=== PATIENT | male | born 1970 | race Two or more races ===

== ENCOUNTER 2018-12-03 13:23 | Emergency (ER) | payer MEDICARE, OTHER ==
[~2018-12-03] VITALS: Ht 162.6 cm; Wt 59.0 kg
[2018-12-03] MEDS ORDERED: METFORMIN HYDRO25 GM MISC (13:30)
[2018-12-03] MEDS ORDERED: ZYPREXA2.5 MG PO (13:30)
[2018-12-03] MEDS ORDERED: COZAAR100 MG PO (17:04)
[2018-12-03] MEDS ORDERED: OLANZAPINE5 MG PO (17:05)
[2018-12-03] MEDS ORDERED: METFORMIN HCL1000 M1 PO (17:05)
[2018-12-03] MEDS ORDERED: BENZTROPINE ME0.5 MG PO (17:06)
[2018-12-03] MEDS ORDERED: CETIRIZINE HCL10 MG PO (17:06)
[2018-12-03] MEDS ORDERED: CHLORTHALIDONE25 MG PO (17:15)
[2018-12-03] MEDS ORDERED: PROZAC20 MG PO (17:16)
[2018-12-03] MEDS ORDERED: NORVASC10 MG PO (17:17)
[2018-12-03] MEDS ORDERED: LIPITOR20 MG (17:17)
[2018-12-03] MEDS ORDERED: COREG3.125 MG PO (17:18)
[2018-12-03] MEDS ORDERED: ATIVAN1 MG PO (17:18)
[2018-12-03] MEDS ORDERED: FLUPHENAZINE HC10 MG PO (17:19)
--- OUTSIDE RECORDS SUMMARY | 2018-12-04 11:16 | XMS ---
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 Guidelines CARE PROVIDERS [facility] Psychiatry \T\ Neurology: Psychiatry Current PHONE: Unknown JERRY CUNNINGHAM Primary Care Current PHONE: Unknown Guidelines Source: [facility] Wellness Guidelines Date: 10/23/2017 Care Recommendation: Savannah request staff to be nice and respectful if he is ever admitted as he reports having a history of hospitalizations he felt he wasn\T\#39;t treated well.\T\nbsp; In addition, Savannah requests that if admitted that he get his antipsychotic medications.\T\nbsp;\T\nbsp; No history of violence to self or others. No current PRN\T\#39;s for anxiety or agitation and willing to take medications if needed. Allergies:\T\nbsp; Lisinopril Care Coordination: Please contact: Queta Parker RN [facility] [place] PCP:\T\nbsp; Lucy Schrader PA-C E.DCarol VISIT COUNT (12 MO.) 1 [facility] TOTAL 1 NOTE: Visits indicate total known visits. ED/UCC VISIT TRACKING (12 MO.) 12/03/2018 13:23 SERGEY Krishnan [place] TYPE: Emergency COMPLAINT: - MEDICAL CLEARANCE INPATIENT VISIT TRACKING (12 MO.) No inpatient visits to display in this time frame [email or web address]
== END 2018-12-04 11:15 ==
LOC: ED 13:23
DX: Z00.8 Encounter for other general examination (principal); F17.200 Nicotine dependence, unspecified, uncomplicated; Z79.899 Other long term (current) drug therapy
CPT/HCPCS: 80053; 80176; 81001; 84443; 85025; 99284; G0480